=== PATIENT | female | born 1990 | race Caucasian/White ===

== ENCOUNTER 2025-05-06 10:31 | Outpatient (AMB) | payer OTHER, SELFPAY ==
--- NOTE | 2025-05-06 10:33 | MHC.PC.OV ---
Vital Signs 05/06/25 10:43 Height 5 ft 4 in Weight 298 lb BMI 51.1 BP 134/74 Blood Pressure Location Lt brachial Position Sitting Respiration 13 Pulse 82 Pulse Source Pulse Oximeter Temp 97.6 F Temp Source Oral Pulse Oximetry (%) 96 Oxygen Delivery Method Room Air Intake Visit Reasons: Diabetes, Hypertension Intake Note: New patient to establish care. 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 Required: No Allergies No Known Allergies Allergy (Verified 05/06/25 10:51) Medication List - Last Reviewed 05/06/25 by Yonathan Blum MA albuterol sulfate 90 mcg/actuation inhalation chlorthalidone 25 mg PO DAILY clotrimazole 1% appl topical dextroamphetamine-amphetamine 5 mg 1 tab PO BID fluticasone propion-salmeterol 232-14 mcg/actuation 1 inh inhalation losartan 100 mg PO DAILY metformin ER 1,000 mg PO DAILY norethindrone (contraceptive) 0.35 mg PO DAILY nystatin (Nyamyc) topical omeprazole 20 mg PO DAILY rosuvastatin 20 mg PO DAILY semaglutide (Ozempic) mg subcut ziprasidone HCl 60 mg PO BEDTIME Tobacco use date assessed: 05/06/25 Dental Screening Dental Screen Date: 05/06/25 Did you have a dental visit in the last 12 months?: Yes Did you have a dental problem in the last 6 months where you did not have access to dental care?: No Was dental information given to patient?: Patient has dentist HPI HPI Comments History of Present Illness Details 35 y/o F with DM2, HTN, HLD, Asthma, GERD, Bipolar, ADHD, JOSH on CPAP, Vit D def Health Maintenance Tdap 2022 PCV 23 2022 Pap reports UTD at [facility] * Specialists Prescriber BOARD CERTIFIED ARTS THERAPIST at [facility] Optho Dr Arizmendi 12/2024 Denies DM retinopathy* Cards @ [facility] Here today as new patient, to est care No records avail, Dr Del Cid Bipolar/ADHD does not have a counselor; does have a prescriber. Mood stable. Interested in counselor DM 2 not managed by Endo A1c 6.6% DME UTD and negative. Metformin and GLP1. Obesity overeating interested in Piccoloist WT loss, not surgery. HLD on statin GERD on PPI HTN at goal on meds JOSH on CPAP managed by Sleep med at [facility] Palps - new - Zio patch. Kain see Cards for initial consult soon. VIt D def takes supplements Asthma well controlled, Prn MELBA & Flut/Salm. Exam Awake alert NAD Scleras noncteric RRR, 2/6 murmur LSB LS CTAB No edema BLE Normal PP Mood and affect approriate Plan: Labs Wt mgmt and counseling referral Get records RTO 3 months routine visit sooner prn Total time spent caring for the patient today was 45 minutes. This includes time spent before the visit reviewing the chart, time spent during the visit, and time spent after the visit on documentation, reviewing laboratory results, diagnostic imaging, medications, performing a medically necessary evaluation, counseling on diagnoses, care coordination, ordering appropriate tests, ordering appropriate medications, review of tests performed by other providers, reporting test results with the patient, communication with other healthcare providers. [facility] Medical History (Updated 05/06/25 @ 11:24 by Donna Aaron, [facility]) Anxiety and depression Asthma Bipolar 1 disorder Diabetes GERD (gastroesophageal reflux disease) High cholesterol HTN (hypertension) Sinusitis Surgical History (Updated 05/06/25 @ 10:53 by Yonathan Blum MA) History of tonsillectomy Hx of breast reduction, elective Hx of cholecystectomy Family History (Updated 05/06/25 @ 10:57 by Yonathan Blum MA) Mother Asthma Thyroid disorder Father HTN (hypertension) Cardiovascular disease Thyroid disorder Maternal Grandmother HTN (hypertension) Cardiovascular disease Thyroid disorder Paternal Grandmother HTN (hypertension) Cardiovascular disease Thyroid disorder Maternal Grandfather HTN (hypertension) Cardiovascular disease Thyroid disorder Paternal Grandfather HTN (hypertension) Cardiovascular disease Thyroid disorder Social History (Updated 05/06/25 @ 10:49 by Yonathan Blum MA) Household Members: None Both parents involved: No Caregiver staying overnight: No Housing: Apartment Are you a primary rn long term care to a significant other at home: No Do you presently have visiting nurse or other home services: No 75 years or older and lives alone: No Alcohol intake: current Alcohol intake frequency: a few times a month Patient Tobacco Use Status: Never used Tobacco e-Cigarette/Vaping Use: Never Used Second Hand Smoke Exposure: No Current occupational status: employed 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 1. Little interest or pleasure in doing things: not at all 2. Feeling down, depressed, or hopeless: not at all 3. Trouble falling or staying asleep, or sleeping too much: several days 4. Feeling tired or having little energy: not at all 5. Poor appetite or overeating: nearly every day 6. Feeling bad about yourself - or that you are a failure or have let yourself or your family down: not at all 7. Trouble concentrating on things, such as reading the newspaper or watching television: not at all 8. Moving or speaking so slowly that other people could have noticed. Or the opposite - being so fidgety or restless that you have been moving around a lot more than usual: not at all 9. Thoughts that you would be better off or of hurting yourself in some way: not at all Total score: 4 Depression Screening Interpretation: Negative Depression Screening Done: Yes 90997 - PHQ-9 Billing: Yes Source: Developed by Drs. Juan Byrd, Susannah Yadav, Yonatan Mckeon and colleagues, with an educational yissel from [employer]. Thrive Questionnaire Date Thrive assessed: 05/06/25 I am a: Patient What is your living situation today?: I have a steady place to live Within the past 12 months, did the food you bought not last and you didn't have the money to get more?: Never true Within the past 12 months, did you worry whether your food would run out before you got money to buy more?: Never true Do you have trouble paying for medicines?: No Do you have trouble getting transportation to medical appointments?: No Do you have trouble paying your heating and electricity bill?: No Do you have trouble taking care of your child, family member or friend?: No Do you have trouble with day-to-day activities such as bathing, preparing meals, shopping, managing finances, etc.?: No Are you currently unemployed and looking for a job?: No Are you interested in more education?: No Please select the resources that you would like help with: None Currently or been in a relationship where the following occur: No concerns reported THRIVE Score: 0 AUDIT C Alcohol Use Questionnaire (AUDIT-C) 1. How often do you have a drink containing alcohol?: Monthly or less 2. How many drinks containing alcohol do you have on a typical day when you are drinking?: 1 or 2 3. How often do you have six or more drinks on one occasion?: Never Total Score: 1 Score Reviewed/Action Taken: Yes GUILLERMINA-7 AMB Questionnaire GUILLERMINA-7 Date GUILLERMINA - 7 assessed: 05/06/25 Feeling nervous, anxious, or on edge: 2 = More than half the days Not being able to stop or control worryin = Not at all Worrying too much about different things: 1 = Several days Trouble relaxin = More than half the days Being so restless that it is hard to sit still: 3 = Nearly every day Becoming easily annoyed or irritable: 0 = Not at all Feeling afraid as if something awful might happen: 0 = Not at all Total GUILLERMINA-7 score (0-4 normal; 5-9 mild; 10-14 moderate; 15-21 severe): 8 Source: Developed by Drs. Juan Byrd, Susannah Yadav, Yonatan Mckeon and colleagues, with an educational yissel from [employer]. GUILLERMINA-7 Assessment Billing GUILLERMINA-7 Assessment Tool: GUILLERMINA-7 Assessment 78421 ACT Questionnaire In the past 4 weeks, how much of the time did your asthma keep you from getting as much done at work, school or at home?: None of the time During the past 4 weeks, how often have you had shortness of breath?: Not at all During the past 4 weeks, how often did your asthma symptoms wake you up at night or earlier than usual in the morning?: Not at all During the past 4 weeks, how often have you had to use your rescue inhaler or nebulizer medication?: Not at all How would you rate your asthma control during the past 4 weeks?: Completely controlled ACT Interpretation: Negative Score: 25 Physical exam (Primary Care) Vital Signs: Last Vital Signs Temp 97.6 F 05/06/25 10:43 Pulse 82 05/06/25 10:43 Resp 13 05/06/25 10:43 BP 134/74 05/06/25 10:43 Pulse Ox 96 05/06/25 10:43 Oxygen Delivery Method Room Air 05/06/25 10:43 BMI result Body Mass Index 51.1 BMI Assessment/Plan discussion: High BMI High, discussed plan: lifestyle and weight reduction Tobacco/Smoking Status: Tobacco use Status Tobacco use date assessed 05/06/25 05/06/25 10:37 Patient Tobacco Use Status Never used Tobacco 05/06/25 10:49 e-Cigarette/Vaping Use Never Used 05/06/25 10:49 PHQ-9: PHQ-9 Score PHQ-9: Total score 4 05/06/25 10:37 Depression Screening Interpretation: Negative Thrive Assessment: Date of Thrive Assessment Date Thrive assessed 05/06/25 05/06/25 10:37 Currently or been in a relationship where the following occur: No concerns reported Results AMB Hemoglobin A1c AMB Hemoglobin A1c 6.6 % Last Edit by Yonathan Blum MA on 05/06/25 10:57 Coding Level of Care Code New Pt Level 4 (57392) Complex EM visit Add On G2211 Diagnoses Encounter to establish care Z76.89 Bipolar disorder, current episode mixed, moderate F31.62 Active/Remission status: currently active Current bipolar episode type: mixed Current episode severity: moderate BMI 50.0-59.9, adult Z68.43 DM type 2 causing complication E11.8 Hypertension complicating diabetes E11.9; I10 Hyperlipidemia associated with type 2 diabetes mellitus E11.69; E78.5 JOSH on CPAP G47.33 Palpitations R00.2 Mild intermittent asthma in adult without complication J45.20 Vitamin D deficiency E55.9 Additional Codes GUILLERMINA-7 Assessment Billing - GUILLERMINA-7 Assessment Tool: GUILLERMINA-7 Assessment 69577 ([id number]) PHQ-9 - 59761 - PHQ-9 Billing: Yes ([id number]) Asthma Control Questionnaire - ACT Interpretation: Negative ([id number]) Assessment & Plan Assessment & Plan (1) Encounter to establish care: Code(s): Z76.89 - Persons encountering health services in other specified circumstances (2) Bipolar disorder: Code(s): F31.9 - Bipolar disorder, unspecified Category: Medical Qualifiers: Active/Remission status: currently active Current bipolar episode type: mixed Current episode severity: moderate Qualified Code(s): F31.62 - Bipolar disorder, current episode mixed, moderate (3) BMI 50.0-59.9, adult: Code(s): Z68.43 - Body mass index [BMI] 50.0-59.9, adult Category: Medical (4) DM type 2 causing complication: Comment: hld + htn Code(s): E11.8 - Type 2 diabetes mellitus with unspecified complications Category: Medical (5) Hypertension complicating diabetes: Code(s): E11.9 - Type 2 diabetes mellitus without complications; I10 - Essential (primary) hypertension Category: Medical (6) Hyperlipidemia associated with type 2 diabetes mellitus: Code(s): E11.69 - Type 2 diabetes mellitus with other specified complication; E78.5 - Hyperlipidemia, unspecified Category: Medical (7) JOSH on CPAP: Comment: managed by Shiela Laureano [facility] Code(s): G47.33 - Obstructive sleep apnea (adult) (pediatric) Category: Medical (8) Palpitations: Comment: Dr Miles Tipton - manages Holter 2024 Code(s): R00.2 - Palpitations Category: Medical (9) Mild intermittent asthma in adult without complication: Code(s): J45.20 - Mild intermittent asthma, uncomplicated Category: Medical (10) Vitamin D deficiency: Code(s): E55.9 - Vitamin D deficiency, unspecified Category: Medical Plan . Orders: Orders Complete Blood Count no Diff Today E11.8 - Type 2 diabetes mellitus with unspecified complications IRON PROFILE Today E11.8 - Type 2 diabetes mellitus with unspecified complications Lipid Panel Today E11.8 - Type 2 diabetes mellitus with unspecified complications Vitamin D 25-OH Total Today E11.8 - Type 2 diabetes mellitus with unspecified complications AMB Hemoglobin A1c Today Z13.9 - Encounter for screening, unspecified Comprehensive Met. Panel Today E11.8 - Type 2 diabetes mellitus with unspecified complications Ferritin Today E11.8 - Type 2 diabetes mellitus with unspecified complications Microalbumin, Random (w Creat) Today E11.8 - Type 2 diabetes mellitus with unspecified complications TSH reflex Free T4 Today E11.8 - Type 2 diabetes mellitus with unspecified complications Vitamin B12 and Folate Today E11.8 - Type 2 diabetes mellitus with unspecified complications Referrals Nurse Navigator Referral F31.9 - Bipolar disorder, unspecified, Z68.43 - Body mass index [BMI] 50.0-59.9, adult Medical Weight Management Referral Z68.43 - Body mass index [BMI] 50.0-59.9, adult Patient Instructions: Walk-In Care (Urgent Care): We Make it Easy Walk-in for urgent medical issues such as: ? Seasonal Allergies ? Insect Bites ? Cough ? Diarrhea ? Acute Asthma Attacks ? Back, Knee or Joint Pain ? Ear Infection ? Fever without a Rash ? Headaches ? Nausea ? [place] Eye, Rash or Skin Irritation ? Sore Throat ? Sports Physicals ? Vomiting Most insurances are accepted. Patients do not need to be part of the [facility] to seek care at the walk-in clinic. Locations [address] [facility] [place] [address] ? [phone] [facility] Walk-In Care in [place] provides services to ages 18 and over. Open Saturday-Saturday: 8 a.m. to 5 p.m. and Saturday: 9 a.m. to 3 p.m.* *Hours may vary due to staffing availability. To confirm Walk-In Care hours in [place], please call [phone]. [address] [place] [address] ? [phone] [facility] Walk-In Care in [place] provides services to ages 12 and over. Open Saturday-Saturday: 8 a.m. to 5 p.m. Hours may vary due to staffing availability. To confirm Walk-In Care hours in [place], please call [phone]. LABORATORY SERVICES: [facility] ? Primary Location [address] [place] [address] Saturday through Saturday 6:00 AM ? 5:00 PM Saturday 7:00 AM ? 11:00 AM* [phone] The [facility] is centrally located near the front entrance of the [facility] for easy outpatient access. Convenient parking is provided for outpatients. *Hours may vary due to staffing availability. To confirm Laboratory hours for any location, please call [phone]. Offsite Location For your convenience, we offer offsite laboratory draw stations at the following locations: [address] [place] [address] ? [facility] [address], [address] Saturday through Saturday 7:30 AM ? 1:00 PM* [phone] *Hours may vary due to staffing availability. To confirm Laboratory hours for any location, please call [phone]. [place] ? [address] Saturday through Saturday 6:00 AM ? 3:30 PM* Saturday 6:30 AM ? 3 PM* [phone] *Hours may vary due to staffing availability. To confirm Laboratory hours for any location, please call [phone]. [address] [facility] Saturday through Saturday 7:30 AM ? 4:00 PM* [phone] *Hours may vary due to staffing availability. To confirm Laboratory hours for any location, please call [phone]. [address] [facility] Saturday through 9:00 AM ? 4:00 PM* *Hours may vary due to staffing availability. To confirm Laboratory hours for any location, please call [phone]. Appointments are not necessary. Walk-ins are welcome. Like all the departments throughout the [facility], our Lab undergoes frequent reviews to ensure the quality and accuracy of test results, and our staff takes special pride in its status as a nationally accredited facility. Patient Portal: ONE PATIENT. ONE RECORD. BETTER CARE. [facility] has a fully integrated, cutting-edge mobile electronic health information system that has revolutionized the way we care for our patients and manage our organization. This system improves communication and coordination enabling us to provide safe, higher-quality care, and an overall positive experience for staff and patients. Our first priority, as always, is to deliver the highest quality care possible. The system is running in the background supporting that priority. This portal is for all [facility] and [facility] services and practices. If you are experiencing any technical difficulties with enrolling or logging into the Patient Portal please complete the [facility] Patient Portal Technical Support Form. [facility] now offers a new secure on-line interactive tool for patients to review their health information ? ?Patient Portal. This interactive web portal will enable patients and their families to take an active role in their care by providing easy, secure access to their health information via the internet. The Patient Portal provides patients with instant access to their health information, including laboratory results, medications, allergies, demographic information, visit history, and more. In addition to managing their own care, parents and health care proxies with authorized consent will appreciate the ability to access the records of those individuals for whom they provide care. Please note: if you wish to gain access (Proxy) to another patient?s portal, you will be required to come to the Medical Records Department in person at [facility]. Both the patient giving proxy access and the proxy will need to provide photo identification and complete the appropriate authorization. The Patient Portal also allows track their appointments online. The [facility] Patient Portal also saves patients time by allowing them to submit updates to their demographic and contact information prior to their visits. Portal email notifications will also alert patients to any new activity on their portal, such as test results and new appointments. In order to initially enroll in the [facility] Patient Portal, you will need to enter some required information including the following: your [facility] Medical Record number your personal home email address name date of Please note: In order to enroll in the [facility] Patient Portal, we need to have your email address on file in your electronic medical record. ?The email address needs to be specific for one person (yourself) in order for your Portal enrollment to be successful. ?You can update your email address in person with our Registration staff when you are registering for a hospital visit. ?Otherwise, you will need to come to the Health Information Management (Medical Records) Department at [facility]. ?We are open from Saturday ? Saturday from 7:30 a.m. ? 4:30 p.m. ?You will be required to present a photo id. Once you have successfully enrolled in the Patient Portal, you will receive a one-time user id and password for the Portal, sent to your email address. ?This will allow you to log into the Patient Portal within 99 hrs and reset your own logon id and password, and define personal security questions. ?Once your permanent login and password have been set, you can log into the [facility] Patient Portal at any time via the blue button above or from the Portal Logon button on any page of the [facility] website. [facility] encourage all of our patients to enroll in Patient Portal as it presents a valuable opportunity for patients and their families to actively participate in their care and stay healthy Welcome to [facility]. ?We look forward to working with you.
[2025-05-06 10:43] VITALS: BP 134/74; PULSE 82; RESP 13; TEMP 36.4; O2SAT 96; BMI 51.1
== END 2025-05-06 11:18 | disposition home or self-care (01) ==
LOC: HO.HMCFM 10:32
PROVIDERS: PCP Nurse Practitioner Family; Visit Provider Nurse Practitioner Family
DX: E11.8 Type 2 diabetes mellitus with unspecified complications (principal); E11.9 Type 2 diabetes mellitus without complications; E11.69 Type 2 diabetes mellitus with other specified complication; F31.62 Bipolar disorder, current episode mixed, moderate; Z68.43 Body mass index [BMI] 50.0-59.9, adult; Z76.89 Persons encountering health services in other specified circumstances; I10 Essential (primary) hypertension; E78.5 Hyperlipidemia, unspecified; G47.33 Obstructive sleep apnea (adult) (pediatric); R00.2 Palpitations; J45.20 Mild intermittent asthma, uncomplicated; E55.9 Vitamin D deficiency, unspecified

== ENCOUNTER → 2025-05-06 10:31 | Outpatient (BNVA) | payer OTHER, SELFPAY | PROVIDERS: PCP Nurse Practitioner Family; Visit Provider Nurse Practitioner Family | DX: I10 Essential (primary) hypertension (principal); E78.5 Hyperlipidemia, unspecified; J45.20 Mild intermittent asthma, uncomplicated; K21.9 Gastro-esophageal reflux disease without esophagitis; F31.9 Bipolar disorder, unspecified; F90.9 Attention-deficit hyperactivity disorder, unspecified type; G47.33 Obstructive sleep apnea (adult) (pediatric); E55.9 Vitamin D deficiency, unspecified; F31.62 Bipolar disorder, current episode mixed, moderate; E11.69 Type 2 diabetes mellitus with other specified complication; R00.2 Palpitations; Z76.89 Persons encountering health services in other specified circumstances; Z99.89 Dependence on other enabling machines and devices | CPT/HCPCS: 83036; 96127; 96160 ==

== ENCOUNTER 2025-05-06 11:37 | Outpatient (REF) | payer OTHER, SELFPAY ==
[2025-05-06 13:46] LABS: Hematocrit 41.2 % (37.0-47.0); Hemoglobin 13.2 g/dl (12.0-16.0); Mean Corpuscular Hemoglobin 27.2 pg (27.0-33.0); Mean Corpuscular Volume 84.8 fL (80.0-98.0); Mean Platelet Volume 9.7 fL (9.4-12.3); Platelet Count 267 X10*3/uL (160-400); Red Blood Count 4.86 X10*6/uL (4.20-5.50); Red Cell Distribution Width 15.3 % (11.0-16.0)
[2025-05-06 14:14] LABS: Alanine Aminotransferase 40 U/L (0-31); Albumin Level 4.5 g/dL (3.5-5.0); Alkaline Phosphatase 88 U/L (39-117); Anion Gap 11 (12-20); Aspartate Amino Transferase 26 U/L (5-31); Bilirubin Total 0.2 mg/dL (0.0-1.0); Blood Urea Nitrogen 10 mg/dL (9-16); Calcium 9.8 mg/dL (8.4-10.2); Carbon Dioxide 30 mmol/L (22-29); Chloride 101 mmol/L (96-108); Cholesterol 129 mg/dL (<200); Estimated Glomerular Filt Rate > 60; Glucose Random 232 mg/dL (60-115); HDL Cholesterol 32 mg/dL (>40); Iron 156 mcg/dL (30-160); Percent Iron Saturation 42 % (15-50); Potassium 3.7 mmol/L (3.3-5.1); Sodium 138 mmol/L (135-145); Total Iron Binding Capacity 372 mcg/dL (228-428); Total Protein 7.2 g/dL (6.5-8.0); Triglycerides 422 mg/dL (<150); Unsaturated Iron Binding 216 ug/dL
[2025-05-06 14:33] LABS: Ferritin 33 ng/mL (10-122); TSH reflex Free T4 2.59 uIU/mL (0.32-4.0); Vitamin D 25-OH Total 41.3 ng/mL (>30)
[2025-05-06 14:37] LABS: Folate 18.7 ng/mL (> or = 4.0); Vitamin B12 649 pg/mL (200-900)
== END 2025-05-06 11:38 | disposition home or self-care (01) ==
LOC: HO.WFDLDS 11:37
PROVIDERS: Visit Provider Nurse Practitioner Family
DX: E11.8 Type 2 diabetes mellitus with unspecified complications (principal)
CPT/HCPCS: 36415; 80053; 80061; 82306; 82607; 82728; 82746; 83540; 84443; 85027

== ENCOUNTER 2025-05-08 12:35 | Outpatient (REF) | payer OTHER, SELFPAY ==
[2025-05-08 14:28] LABS: Creatinine Urine 59.23 mg/dL; Microalbumin Urine < 5.0 mg/L
== END 2025-05-08 12:36 | disposition home or self-care (01) ==
LOC: HO.HMGCLNP 12:35
PROVIDERS: Visit Provider Nurse Practitioner Family
DX: E11.8 Type 2 diabetes mellitus with unspecified complications (principal)
CPT/HCPCS: 82043; 82570

== ENCOUNTER 2025-08-09 08:35 | Outpatient (AMB) | payer OTHER, SELFPAY ==
--- NOTE | 2025-08-09 08:37 | A.OFFPC_ITS ---
Vital Signs 3 08/09/25 08:41 Height 5 ft 4 in Weight 297 lb BMI 51.0 BP 138/74 Blood Pressure Location Rt brachial Position Sitting Respiration 13 Pulse 76 Pulse Source Pulse Oximeter Temp 97.6 F Temp Source Oral Pulse Oximetry (%) 98 Oxygen Delivery Method Room Air Intake Visit Reasons: 3 mo 30 min routine fu Intake Note: Routine follow up. Patient wants to discuss about blood pressure and also wants to review echo. Yard Clerk Required: No Allergies No Known Allergies Allergy (Verified 08/09/25 08:45) Medication List - Last Reconciled 08/09/25 by Donna Aaron, SHIPPING MANAGER- albuterol sulfate 90 mcg/actuation inhalation chlorthalidone 25 mg PO DAILY clotrimazole 1% appl topical dextroamphetamine-amphetamine 5 mg 1 tab PO BID fluticasone propion-salmeterol 232-14 mcg/actuation 1 inh inhalation losartan 100 mg PO DAILY metformin ER 1,000 mg PO DAILY norethindrone (contraceptive) 0.35 mg PO DAILY nystatin (Nyamyc) topical omeprazole 20 mg PO DAILY rosuvastatin 20 mg PO DAILY semaglutide (Ozempic) mg subcut ziprasidone HCl 60 mg PO BEDTIME Tobacco use date assessed: 08/09/25 Dental Screening Dental Screen Date: 08/09/25 Did you have a dental visit in the last 12 months?: Yes Did you have a dental problem in the last 6 months where you did not have access to dental care?: No Was dental information given to patient?: Patient has dentist HPI HPI Comments 2 History of Present Illness0 Details 35 y/o F with DM2, HTN, HLD, Asthma, FLORY D, Bipolar, ADHD, JOSH on CPAP, Vit D def Health Maintenance Tdap 2022 PCV 2022 Pap reports UTD at [facility] * Flu admin today 08/09/25 Specialists Prescriber Counselor 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 L chest wall pain, worse w movements, can occur after eating; Mom thinks muscular. This is not exertionally worse. Describes as sharp. static like Appt w/ Cards at [facility] 09/2025 Bipolar/ADHD now active w/ counselor; does have a prescriber. Mood stable. DM 2 not managed by Endo A1c (6.6%) 7.4% DME UTD and negative. Metformin and GLP1. would like podiatry referral for foot care; has fungus. no at home tx. Obesity overeating interested in Cap Maker WT loss, not surgery. HLD on statin GERD on PPI HTN at goal on meds . Worries about high BP at work d/t levels of stress. Home log reviewed. See below. JOSH on CPAP managed by Sleep med at [facility] Palps - new - Zio patch. Echo completed; reviewed today. Consult w cards 09/2025 VIt D def takes supplements Asthma forgets to take maintenance inhaler, having sx. Describes crackling in chest at times. does not like MELBA as it causes palps. Exam Awake alert NAD Scleras noncteric RRR, 2/6 murmur LSB LS CTAB No edema BLE Normal PP DM foot exam performed, see below Mood and affect approriate Plan: Flu shot today STart farxiga 10mg to aide in DM; send jardiance or invokana based on co-pay. Referral to Wt Mgmt and Podiatry Clotrimazole for tinea pedis Change Albuterol to Xopenex. Take flut/salmeterol 2 puffs QD. Cont all meds. BP looks good. FU with Cards as scheduled. RTO with labs Dec for CPE, sooner as needed. Total time spent caring for the patient today was 45 minutes. This includes time spent before the visit reviewing the chart, time spent during the visit, and time spent after the visit on documentation, reviewing laboratory results, diagnostic imaging, medications, performing a medically necessary evaluation, counseling on diagnoses, care coordination, ordering appropriate tests, ordering appropriate medications, review of tests performed by other providers, reporting test results with the patient, communication with other healthcare providers. [facility] Medical History (Updated 08/09/25 @ 09:21 by ALY Jacob) Anxiety and depression Asthma Bipolar 1 disorder Diabetes GERD (gastroesophageal reflux disease) High cholesterol HTN (hypertension) Sinusitis Surgical History (Updated 05/06/25 @ 10:53 by Yonathan Blmu MA) History of tonsillectomy Hx of breast reduction, elective Hx of cholecystectomy Family History (Updated 05/06/25 @ 10:57 by Yonathan Blum MA) Mother Asthma Thyroid disorder Father HTN (hypertension) Cardiovascular disease Thyroid disorder Maternal Grandmother HTN (hypertension) Cardiovascular disease Thyroid disorder Paternal Grandmother HTN (hypertension) Cardiovascular disease Thyroid disorder Maternal Grandfather HTN (hypertension) Cardiovascular disease Thyroid disorder Paternal Grandfather HTN (hypertension) Cardiovascular disease Thyroid disorder Social History (Updated 05/06/25 @ 10:49 by Yonathan Blum MA) Household Members: None Both parents involved: No Caregiver staying overnight: No Housing: Apartment Are you a primary acute care physician to a significant other at home: No Do you presently have visiting nurse or other home services: No 75 years or older and lives alone: No Alcohol intake: current Alcohol intake frequency: a few times a month Patient Tobacco Use Status: Never used Tobacco e-Cigarette/Vaping Use: Never Used Second Hand Smoke Exposure: No Current occupational status: employed 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 1. Little interest or pleasure in doing things: not at all 2. Feeling down, depressed, or hopeless: not at all 3. Trouble falling or staying asleep, or sleeping too much: not at all 4. Feeling tired or having little energy: not at all 5. Poor appetite or overeating: not at all 6. Feeling bad about yourself - or that you are a failure or have let yourself or your family down: not at all 7. Trouble concentrating on things, such as reading the newspaper or watching television: not at all 8. Moving or speaking so slowly that other people could have noticed. Or the opposite - being so fidgety or restless that you have been moving around a lot more than usual: not at all 9. Thoughts that you would be better off or of hurting yourself in some way: not at all Total score: 0 Depression Screening Interpretation: Negative Depression Screening Done: Yes 61721 - PHQ-9 Billing: Yes Source: Developed by Drs. Juan Byrd, Susannah Yadav, Yonatan Mckeon and colleagues, with an educational yissel from [employer]. Thrive Questionnaire Date Thrive assessed: 08/09/25 I am a: Patient What is your living situation today?: I have a steady place to live Within the past 12 months, did the food you bought not last and you didn't have the money to get more?: Never true Within the past 12 months, did you worry whether your food would run out before you got money to buy more?: Never true Do you have trouble paying for medicines?: No Do you have trouble getting transportation to medical appointments?: No Do you have trouble paying your heating and electricity bill?: No Do you have trouble taking care of your child, family member or friend?: No Do you have trouble with day-to-day activities such as bathing, preparing meals, shopping, managing finances, etc.?: No Are you currently unemployed and looking for a job?: No Are you interested in more education?: No THRIVE Score: 0 GUILLERMINA-7 AMB Questionnaire GUILLERMINA-7 Date GUILLERMINA - 7 assessed: 08/09/25 Feeling nervous, anxious, or on edge: 0 = Not at all Not being able to stop or control worryin = Not at all Worrying too much about different things: 0 = Not at all Trouble relaxin = Not at all Being so restless that it is hard to sit still: 0 = Not at all Becoming easily annoyed or irritable: 0 = Not at all Feeling afraid as if something awful might happen: 0 = Not at all Total GUILLERMINA-7 score (0-4 normal; 5-9 mild; 10-14 moderate; 15-21 severe): 0 Source: Developed by Drs. Juan Byrd, Susannah Yadav, Yonatan Mckeon and colleagues, with an educational yissel from [employer]. GUILLERMINA-7 Assessment Billing GUILLERMINA-7 Assessment Tool: GUILLERMINA-7 Assessment 03673 ACT Questionnaire In the past 4 weeks, how much of the time did your asthma keep you from getting as much done at work, school or at home?: None of the time During the past 4 weeks, how often have you had shortness of breath?: 3-6 times a week During the past 4 weeks, how often did your asthma symptoms wake you up at night or earlier than usual in the morning?: Not at all During the past 4 weeks, how often have you had to use your rescue inhaler or nebulizer medication?: 1-2 times a week How would you rate your asthma control during the past 4 weeks?: Somewhat controlled ACT Interpretation: Positive ACT Branch: New medication Score: 18 Physical exam (Primary Care) Vital Signs: Last Vital Signs Temp 97.6 F 08/09/25 08:41 Pulse 76 08/09/25 08:41 Resp 13 08/09/25 08:41 BP 138/74 08/09/25 08:41 Pulse Ox 98 08/09/25 08:41 Oxygen Delivery Method Room Air 08/09/25 08:41 BMI result Body Mass Index 51.0 BMI Assessment/Plan discussion: High BMI High, discussed plan: lifestyle Tobacco/Smoking Status: Tobacco use Status Tobacco use date assessed 08/09/25 08/09/25 08:40 Patient Tobacco Use Status Never used Tobacco 08/09/25 08:37 e-Cigarette/Vaping Use Never Used 08/09/25 08:37 PHQ-9: PHQ-9 Score PHQ-9: Total score 0 08/09/25 09:26 Depression Screening Interpretation: Negative Thrive Assessment: Date of Thrive Assessment Date Thrive assessed 05/06/25 08/09/25 08:57 Office Procedures Diabetic Foot Exam Details: normal monofilament bilat, normal vibratory sensation bilat, + tinea pedis and callouses bilat G9226 - Diabetic Foot Exam Flu Questionnaire Does the patient have a severe egg allergy?: No Does the patient have severe life threatening allergies?: No Does the patient have a fever or illness today?: No Has the patient ever had Guillain-Westover Syndrome?: No Has the patient ever had any past reaction to a flu shot?: No Results AMB Hemoglobin A1c 2 AMB Hemoglobin A1c 7.4 % Last Edit by Yonathan Blum MA on 08/09/25 09:28 Immunizations Fluarix [id number] (PF) 45 mcg (15 mcg x 3)/0.5 mL IM syringe Performing Provider: MARIE Jacob Performing Location: [facility] Administered by: Yonathan Blum MA on 08/09/25 09:27 2 Dose Route Admin Location Dispensed Lot Number Expiration Date [facility] Medical Coding Instructor 0.5 mL IM Left Deltoid 0.5 mL [id number] 05/17/26 [id number] [employer] 2 VIS Given Date VIS Provided VIS Publication Date 08/09/25 Single Vaccine 24 Eligibility Eligibility Date Funding Source Not VFC Eligible 08/09/25 Private Results Reviewed Results Reviewed: Laboratory Last Values Hgb A1c (Clinic) 7.4 % (4.0-6.0) H 08/09/25 09:23 08/02/25 [facility] Echo Coding Level of Care Code Est Pt Level 5 (60451) Complex EM visit Add On G2211 Diagnoses Hypertension complicating diabetes E11.9; I10 Palpitations R00.2 Hyperlipidemia associated with type 2 diabetes mellitus E11.69; E78.5 DM type 2 causing complication E11.8 BMI 50.0-59.9, adult Z68.43 Influenza vaccination administered at current visit Z23 Vitamin D deficiency E55.9 H/O echocardiogram Z92.89 CPT Codes Diabetic Foot Exam - CPT: G9226 - Diabetic Foot Exam ([id number]) Additional Codes Asthma Control Questionnaire - ACT Interpretation: Positive ([id number]) GUILLERMINA-7 Assessment Billing - GUILLERMINA-7 Assessment Tool: GUILLERMINA-7 Assessment 16209 ([id number]) PHQ-9 - 51115 - PHQ-9 Billing: Yes ([id number]) Assessment & Plan Assessment & Plan (1) Hypertension complicating diabetes: Code(s): E11.9 - Type 2 diabetes mellitus without complications; I10 - Essential (primary) hypertension Category: Medical (2) Palpitations: Comment: Dr Aquino [facility] - manages Holter 2024 Code(s): R00.2 - Palpitations Category: Medical (3) Hyperlipidemia associated with type 2 diabetes mellitus: Code(s): E11.69 - Type 2 diabetes mellitus with other specified complication; E78.5 - Hyperlipidemia, unspecified Category: Medical (4) DM type 2 causing complication: Comment: hld + htn Code(s): E11.8 - Type 2 diabetes mellitus with unspecified complications Category: Medical (5) BMI 50.0-59.9, adult: Code(s): Z68.43 - Body mass index [BMI] 50.0-59.9, adult Category: Medical (6) Influenza vaccination administered at current visit: Code(s): Z23 - Encounter for immunization Category: Medical (7) Vitamin D deficiency: Code(s): E55.9 - Vitamin D deficiency, unspecified Category: Medical (8) H/O echocardiogram: Onset Date: ~07/2025 Code(s): Z92.89 - Personal history of other medical treatment Category: Medical Plan . Orders: Orders 2 Comprehensive Met. Panel Today E11.69 - Type 2 diabetes mellitus with other specified complication, E11.8 - Type 2 diabetes mellitus with unspecified complications, E11.9 - Type 2 diabetes mellitus without complications, E55.9 - Vitamin D deficiency, unspecified, E78.5 - Hyperlipidemia, unspecified, I10 - Essential (primary) hypertension Vitamin D 25-OH Total Today E11.69 - Type 2 diabetes mellitus with other specified complication, E11.8 - Type 2 diabetes mellitus with unspecified complications, E11.9 - Type 2 diabetes mellitus without complications, E55.9 - Vitamin D deficiency, unspecified, E78.5 - Hyperlipidemia, unspecified, I10 - Essential (primary) hypertension Lipid Panel Today E11.69 - Type 2 diabetes mellitus with other specified complication, E11.8 - Type 2 diabetes mellitus with unspecified complications, E11.9 - Type 2 diabetes mellitus without complications, E55.9 - Vitamin D deficiency, unspecified, E78.5 - Hyperlipidemia, unspecified, I10 - Essential (primary) hypertension Vitamin B12 and Folate Today E11.69 - Type 2 diabetes mellitus with other specified complication, E11.8 - Type 2 diabetes mellitus with unspecified complications, E11.9 - Type 2 diabetes mellitus without complications, E55.9 - Vitamin D deficiency, unspecified, E78.5 - Hyperlipidemia, unspecified, I10 - Essential (primary) hypertension AMB Hemoglobin A1c Today Z13.9 - Encounter for screening, unspecified Influenza [id number] Immunization Today Z23 - Encounter for immunization Referrals 2 Medical Weight Management Referral Z68.43 - Body mass index [BMI] 50.0-59.9, adult Podiatry Referral E11.8 - Type 2 diabetes mellitus with unspecified complications Medications: New 2 losartan 100 mg PO DAILY 90 tabs 2RF clotrimazole 1% 1 appl topical BID 30 grams 2RF 4 weeks levalbuterol tartrate 45 mcg/actuation (Xopenex HFA) 2 puffs inhalation Q6H PRN 15 grams 2RF shortness of breath chlorthalidone 25 mg PO DAILY 90 tabs 2RF dapagliflozin propanediol (Farxiga) 10 mg PO DAILY 90 tabs 2RF Changed 2 From fluticasone propion-salmeterol 232-14 mcg/actuation 1 inh inhalation To fluticasone propion-salmeterol 232-14 mcg/actuation 1 inh inhalation BID 3 ea 2RF
[2025-08-09 08:41] VITALS: BP 138/74; PULSE 76; RESP 13; TEMP 36.4; O2SAT 98; BMI 51.0
== END 2025-08-09 10:05 | disposition home or self-care (01) ==
PROVIDERS: PCP Nurse Practitioner Family; Visit Provider Nurse Practitioner Family
DX: E11.69 Type 2 diabetes mellitus with other specified complication (principal); Z68.43 Body mass index [BMI] 50.0-59.9, adult; I10 Essential (primary) hypertension; R00.2 Palpitations; E78.5 Hyperlipidemia, unspecified; Z23 Encounter for immunization; E55.9 Vitamin D deficiency, unspecified; Z92.89 Personal history of other medical treatment

== ENCOUNTER → 2025-08-09 08:35 | Outpatient (BNVA) | payer OTHER, SELFPAY | PROVIDERS: PCP Nurse Practitioner Family; Visit Provider Nurse Practitioner Family | DX: E11.69 Type 2 diabetes mellitus with other specified complication (principal); I10 Essential (primary) hypertension; R00.2 Palpitations; E78.5 Hyperlipidemia, unspecified; E55.9 Vitamin D deficiency, unspecified; Z23 Encounter for immunization; Z68.43 Body mass index [BMI] 50.0-59.9, adult | CPT/HCPCS: 83036; 90471; 90656; 96127; 96160 ==

== ENCOUNTER 2025-08-31 07:55 | Outpatient (AMB) | payer OTHER, SELFPAY ==
[2025-08-31 08:07] VITALS: BMI 50.1
--- NOTE | 2025-08-31 08:07 | MHC.OFFVIS ---
Vital Signs 08/31/25 08:07 Height 5 ft 4 in Weight 292 lb BMI 50.1 Intake Visit Reasons: New Pt- diabetic foot exam Intake Note: Stephanie is 35 year old female who is being seen today as a New Patient for a diabetic foot exam. Her last reported A1c was 7.4 as of 08/09/25 and her last glucose reading was 232 as of 05/06/25. Pt denies experiencing numbness, tingling, or burning in her feet. She has history of a left ankle fracture. She has experienced vomiting recently and she believes it was due to what she ate and the ozempic. She reports having bilateral callous on the plantar as pect of her foot and a possible fungal growth on her second left toe Allergies No Known Allergies Allergy (Verified 08/31/25 08:12) HPI Comments Details: The patient is a 35-year-old female with a past medical history as seen below presenting with foot-related issues including athlete's foot, thickening of the skin, and concerns related to diabetes mellitus. The patient reports having athlete's foot on in between her toes, which she occasionally treats with an antifungal cream and spray. Patient states she has been inconsistent with the use of the topical treatments. She acknowledges wearing shoes without socks. The patient also reports thickening of her skin to the plantar aspect of her feet, which sometimes crack and cause pain. She has not experienced significant pain but notes dryness as a contributing factor. The patient has diabetes mellitus with a recent HbA1c of 7.4%, which is the highest it has been for her. Patient states she has not checked her blood glucose today or yesterday and does not know the current blood glucose level. She admits to inconsistent use of her prescribed Ozempic, missing doses occasionally. The patient denies any numbness, tingling, or burning in her feet. She states she has noted changes to the appearance of the left 2nd toenail with rigid noted. She denies any recent pedal injuries. She denies any other pedal concerns. [facility] Medical History (Updated 08/31/25 @ 08:33 by Opal Paul DPM) Tinea pedis Diabetic neuropathy Bipolar 1 disorder Anxiety and depression GERD (gastroesophageal reflux disease) Diabetes High cholesterol HTN (hypertension) Sinusitis Asthma Surgical History (Updated 05/06/25 @ 10:53 by Yonathan Blum MA) Hx of cholecystectomy Hx of breast reduction, elective History of tonsillectomy Family History (Updated 05/06/25 @ 10:57 by Yonathan Blum MA) Mother Asthma Thyroid disorder Father HTN (hypertension) Cardiovascular disease Thyroid disorder Maternal Grandmother HTN (hypertension) Cardiovascular disease Thyroid disorder Paternal Grandmother HTN (hypertension) Cardiovascular disease Thyroid disorder Maternal Grandfather HTN (hypertension) Cardiovascular disease Thyroid disorder Paternal Grandfather HTN (hypertension) Cardiovascular disease Thyroid disorder Social History (Updated 05/06/25 @ 10:49 by Yonathan Blum MA) Household Members: None Both parents involved: No Caregiver staying overnight: No Housing: Apartment Are you a primary hospice spiritual care coordinator to a significant other at home: No Do you presently have visiting nurse or other home services: No 75 years or older and lives alone: No Alcohol intake: current Alcohol intake frequency: a few times a month Patient Tobacco Use Status: Never used Tobacco e-Cigarette/Vaping Use: Never Used Second Hand Smoke Exposure: No Current occupational status: employed 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 - Dermatological: Reports peeling of skin itching in between toes, thickened skin to the plantar aspects of the feet, and ridges on nails. All systems reviewed & are unremarkable except as noted in HPI and below Physical Exam Vital Signs: BMI result Body Mass Index 50.1 Extrem Other: Bilateral lower extremity focused physical exam: Derm: Xerosis and peeling of skin noted to the feet worse to the interdigital spaces bilaterally. Thickened appearance of the plantar aspect of the feet along the plantar aspects with no cracking noted. Toenails within normal limits except for the left 2nd which exhibits ridges to the nail. No open lesions abrasions or wounds noted. No clinical signs of infection. Vascular: DP/PT pulses mildly palpable. Capillary refill time less than 3 seconds. Temperature gradient warm to warm. No edema noted. No varicosities noted. Pedal hair present. Neuro: Protective sensation is grossly intact to light touch. Protective sensations slightly diminished to monofilament testing. MSK: No pain on palpation to the feet bilaterally. Range of motion of the forefoot, hindfoot, and ankles within normal limits. MMT 5/5. Nonantalgic gait unassisted. No crepitus or fluctuance noted. Office Procedures Diabetic Foot Exam G9226 - Diabetic Foot Exam Results Reviewed Results Reviewed: Laboratory Tests 05/06/25 08/09/25 11:40 09:23 Random Glucose 232 H Hgb A1c (Clinic) 7.4 H Assessment & Plan Assessment & Plan (1) DM type 2 causing complication: Comment: hld + htn Code(s): E11.8 - Type 2 diabetes mellitus with unspecified complications Category: Medical (2) Diabetic neuropathy: Code(s): E11.40 - Type 2 diabetes mellitus with diabetic neuropathy, unspecified Category: Medical Qualifiers: Diabetes mellitus type: type 2 (3) Tinea pedis: Code(s): B35.3 - Tinea pedis Category: Medical Qualifiers: Laterality: bilateral Qualified Code(s): B35.3 - Tinea pedis Plan Patient was informed and verbally consented to the use of an ambient scribe for clinic note documentation during this visit. I discussed the importance of managing diabetes to prevent complications such as ulcers, worsening of neuropathy, vision impairement, and adverse effects to organs. We talked about using antifungal treatments for athlete's foot and the necessity of keeping feet clean and dry. I recommended diabetic shoes and insoles for better support and advised on regular foot checks. Follow-up care was planned for nail trimming every nine weeks. - Prescribed Terbinafine cream for athlete's foot, to be applied on the bottom of the feet, avoiding the spaces between toes. Patient may use OTC antifungal spray in between the toes and was advised to let it dry before applying shoes and socks to avoid maceration and breakdown of skin. - Recommend keeping feet clean and dry. Recommended spraying shoes with Lysol and let air dry prior to applying shoes. - Suggested diabetic shoes and insoles for better foot support and to prevent trauma. Provided patient with prescription. - Advised regular monitoring of blood sugar levels and adherence to Ozempic regimen/diabetic treatment as per PCP. - Avoid barefoot walking and wear supportive shoe gear. RTC in 9 weeks for routine diabetic nail care. Orders: Orders AMB Diabetic Foot Exam Today E11.40 - Type 2 diabetes mellitus with diabetic neuropathy, unspecified, E11.8 - Type 2 diabetes mellitus with unspecified complications Medications: New terbinafine HCl 1% (Antifungal (terbinafine)) 1 appl topical BID 30 grams 2RF Tinea Pedis B35.3 - Tinea pedis [diabetic shoes and inserts] Please provide patient with diabetic shoes and inserts/insoles 1 ea 0RF Diabetic neuropathy E11.40 - Type 2 diabetes mellitus with diabetic neuropathy, unspecified, E11.8 - Type 2 diabetes mellitus with unspecified complications Discontinued clotrimazole 1% Discontinued Reason: Patient no longer taking 1 appl topical BID 4 weeks 30 grams 2RF Coding Level of Care Code New Pt Level 4 (00140) Diagnoses DM type 2 causing complication E11.8 Diabetic neuropathy E11.40 Diabetes mellitus type: type 2 Tinea pedis of both feet B35.3 Laterality: bilateral CPT Codes Diabetic Foot Exam - CPT: G9226 - Diabetic Foot Exam ([id number]) Time Spent (min) 55
== END 2025-08-31 08:27 | disposition home or self-care (01) ==
LOC: HO.HPODS 07:55
PROVIDERS: PCP Nurse Practitioner Family; Visit Provider Student in an Organized Health Care Education/Training Program
DX: E11.8 Type 2 diabetes mellitus with unspecified complications (principal); E11.40 Type 2 diabetes mellitus with diabetic neuropathy, unspecified; B35.3 Tinea pedis
CPT/HCPCS: 99204; G9226

== ENCOUNTER 2025-11-05 08:01 | Outpatient (AMB) | payer OTHER, SELFPAY ==
--- NOTE | 2025-11-05 08:26 | MHC.OFFVISWM ---
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 Allergies melon Allergy (Mild, Verified 11/05/25 08:26) Hives Medication List - Last Reconciled 11/05/25 by Danny Hall MD chlorthalidone 25 mg PO DAILY [diabetic shoes and inserts Please provide patient with diabetic shoes and inserts/insoles] fluticasone propion-salmeterol 232-14 mcg/actuation 1 inh inhalation BID levalbuterol tartrate 45 mcg/actuation (Xopenex HFA) 2 puffs inhalation Q6H PRN losartan 100 mg PO DAILY magnesium oxide 400 mg PO DAILY metformin ER 1,000 mg PO DAILY multivitamin 1 tab PO DAILY norethindrone (contraceptive) 0.35 mg PO DAILY nystatin (Nyamyc) topical omeprazole 20 mg PO DAILY rosuvastatin 20 mg PO DAILY semaglutide (Ozempic) mg subcut terbinafine HCl 1% (Antifungal (terbinafine)) 1 appl topical BID ziprasidone HCl 60 mg PO BEDTIME HPI 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: Details: Start time: 8.13am, End time: 9.13am ?I spent 55 minutes speaking with the patient on the phone plus an additional 5 minutes reviewing and updating records for a total of 60 minutes HPI Comments Details: Previous weight loss efforts: self diets and Ozempic to 2mg/wk: no WL Wakes up: 8am, Sleeps: 9pm Breakfast: 8.30am (liquid Nuri or Premier protein shake) Lunch: 2pm (chicken salad with canned chicken Dinner: 5.30pm (yogurt, salmon with rice, pizza) Snacks: 10.30am ([place] bar), 7-8pm (more food from dinner, cookies) Exercise: manual bike (does not track calories) Beverages: Coffee: (2 cups/d with 1% milk with creamer), Tea: none, Soda:none, Juice: rarely, ETOH: rarely PFSH Medical History (Updated 11/05/25 @ 08:33 by Danny Hall MD) Morbid obesity Tinea pedis Diabetic neuropathy Bipolar 1 disorder Anxiety and depression GERD (gastroesophageal reflux disease) Diabetes High cholesterol HTN (hypertension) Sinusitis Asthma Surgical History (Updated 05/06/25 @ 10:53 by Yonathan Blum MA) Hx of cholecystectomy Hx of breast reduction, elective History of tonsillectomy Family History (Updated 05/06/25 @ 10:57 by Yonathan Blum MA) Mother Asthma Thyroid disorder Father HTN (hypertension) Cardiovascular disease Thyroid disorder Maternal Grandmother HTN (hypertension) Cardiovascular disease Thyroid disorder Paternal Grandmother HTN (hypertension) Cardiovascular disease Thyroid disorder Maternal Grandfather HTN (hypertension) Cardiovascular disease Thyroid disorder Paternal Grandfather HTN (hypertension) Cardiovascular disease Thyroid disorder Social History (Updated 05/06/25 @ 10:49 by Yonathan Blum MA) Household Members: None Both parents involved: No Caregiver staying overnight: No Housing: Apartment Are you a primary hospice care transitions coordinator to a significant other at home: No Do you presently have visiting nurse or other home services: No 75 years or older and lives alone: No Alcohol intake: current Alcohol intake frequency: a few times a month Patient Tobacco Use Status: Never used Tobacco e-Cigarette/Vaping Use: Never Used Second Hand Smoke Exposure: No Current occupational status: employed 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 Cognitive needs: No Hearing needs: No Vision needs: Yes (wear glasses) Telehealth Telehealth Telehealth Platform: Telephone Location of provider rendering services: practice address Location of patient: address on file Patient Identification confirmed using: Name, : Yes Telehealth method: voice only Patient verbally consented to treatment: Yes Patient verbally consented to billing insurance company: Yes Patient informed of any privacy concerns related to visit: Yes Minutes spent on Phone/Video with Pt.: 60 Assessment & Plan Assessment & Plan (1) Morbid obesity: Code(s): E66.01 - Morbid (severe) obesity due to excess calories Category: Medical Plan: 1.? Plan for lap sleeve gastrectomy. If diaphragmatic or ventral hernias are present at time of surgery, these will be repaired laparoscopically as well. I emphasized the importance of close follow-up, adherence to instructions and good communication. The surgery does not replace the need to change your lifestlyle which is the cause of the obesity problem. The surgery provides the motivation to try again to change your lifestyle, it reduces the appetite and make the transition to a better lifestyle easier and doubles the amount of weight you would lose compared to doing the lifestyle change without the surgery. You will need to be on a liquid diet with protein shakes for 2 weeks before surgery to maximize weight loss and boost your nutritional status to recover better from surgery and also for the first two weeks after surgery to let the stomach heal before we introduce other foods. After the first 2 weeks we will introduce protein bars and soft foods like scrambled eggs, cottage cheese and yogurt and after the 6th week will introduce meat, fish and cooked vegetables in small amounts. Over time you should be able to eat everything in small amounts. Side effects like nausea, vomiting, heartburn or abdominal pain are not common in the practice unless you are not following in the practice. This operation requires lifetime commitment to following in our practice and communication with me. You will much less weight and experience side effects if you don?t communicate or not following in the practice. Complications are rare and in our practice is about 1/10 of the national average. However, you can develop bleeding that may require transfusion (hasn?t happened for year in the practice), you may from complications (we did not have any deaths in the practice) and infections. Infections are usually a result of breakdown in communication or not understanding or following directions correctly. They are difficult to treat, they can happen during the first 6 weeks, they may require to be in the hospital for weeks or even months, not being able to eat by mouth and you may have drains and surgeries to try and correct the issue. 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 1.?Nutritional counseling. Start with one premade PREMIER protein (buy at [employer] or [employer]) shake (8 oz of Premier and NOT the whole bottle) at 8am-10am, one protein bar ([facility] [employer] protein bar, buy at [employer], or [employer]) at 11am-1pm, another premade PREMIER protein shake (mix 4oz of Premier mixed with 4oz low fat unsweetened almond milk each) at 2pm-4pm, dinner at 5pm (12 forks of protein and 12 forks of salad/vegetables) and one more [facility] protein bar at 7pm-9pm? So you do 2 protein shakes, 2 protein bars and one meal per day. Meal to include lean meat (beef, fish, pork, turkey, chicken), or vietnamese yogurt, or egg whites, or beans with a salad with olive oil and fruits (berries, pears, apples, kiwi). Avoid salt, breads, potatoes, rice, pasta, desserts. 3. Each shake would be drunk slowly, like coffee in a period of 2 hours. 4. Cut each bar in 4 pieces and eat each piece in 30min ?to make each bar last 2 hours. 5. I emphasized the importance of measuring accurately the food portion and measure it when serving the food in plate 6. The meal portions include 12 full-size forks of meat and 12 full-size forks of salad. You always eat the meat portion but you can replace up to 6 forks for salad/vegetables with rice, potatoes or pasta, or a fruit ?if you like. The less you do it the better weight loss will be. 7. One full-size fork is what it can be scooped on the fork without falling aside and not what can be bit with the fork. Use regular forks like those you find in a typical restaurant. 8.? Please buy the body composition scale we discussed and send me weight measurements as soon as possible and then once a week. Always include your diet and exercise plan. 9. Start stationary bike at a resistance level of 2.0 Increase level by 1.0 every 3 min to a max level of 2.0. Stay at this level for 3 min and then return to level 2.0 and repeat same steps until 400 calories are burned daily. 10.?It is important of avoiding and for at least 18 months postoperatively and has been discussed at the infosession. 11. Goal is to lose at least 1.5-2lbs per week 12. Goal to lose 10% of your weight before surgery, which is about 30lbs. Ultimate weight goal: 260lbs before surgery 13. Please follow the diet plan exactly without any change. If you don't like something about the plan or you feel hungry you need to communicate with me so I can help you revise the plan. You should not change the plan yourself 14. To be scheduled for EGD to assess the stomach's anatomy. The possibility of biopsies was discussed. Patient needs to avoid use of NSAIDs and aspirin for 1 week prior to EGD. You must be on liquids only the day before your endoscopy. Risks of perforation and bleeding was discussed with the patient. This will be an outpatient procedure with IV sedation. Orders: Orders Insulin Today E11.69 - Type 2 diabetes mellitus with other specified complication, E11.8 - Type 2 diabetes mellitus with unspecified complications, E11.9 - Type 2 diabetes mellitus without complications, E66.01 - Morbid (severe) obesity due to excess calories, E78.5 - Hyperlipidemia, unspecified, G47.33 - Obstructive sleep apnea (adult) (pediatric), I10 - Essential (primary) hypertension, J45.20 - Mild intermittent asthma, uncomplicated, K21.9 - Gastro-esophageal reflux disease without esophagitis Complete Blood Count Auto Diff Today E11.69 - Type 2 diabetes mellitus with other specified complication, E11.8 - Type 2 diabetes mellitus with unspecified complications, E11.9 - Type 2 diabetes mellitus without complications, E66.01 - Morbid (severe) obesity due to excess calories, E78.5 - Hyperlipidemia, unspecified, G47.33 - Obstructive sleep apnea (adult) (pediatric), I10 - Essential (primary) hypertension, J45.20 - Mild intermittent asthma, uncomplicated, K21.9 - Gastro-esophageal reflux disease without esophagitis Lipid Panel Today E11.69 - Type 2 diabetes mellitus with other specified complication, E11.8 - Type 2 diabetes mellitus with unspecified complications, E11.9 - Type 2 diabetes mellitus without complications, E66.01 - Morbid (severe) obesity due to excess calories, E78.5 - Hyperlipidemia, unspecified, G47.33 - Obstructive sleep apnea (adult) (pediatric), I10 - Essential (primary) hypertension, J45.20 - Mild intermittent asthma, uncomplicated, K21.9 - Gastro-esophageal reflux disease without esophagitis Comprehensive Met. Panel Today E11.69 - Type 2 diabetes mellitus with other specified complication, E11.8 - Type 2 diabetes mellitus with unspecified complications, E11.9 - Type 2 diabetes mellitus without complications, E66.01 - Morbid (severe) obesity due to excess calories, E78.5 - Hyperlipidemia, unspecified, G47.33 - Obstructive sleep apnea (adult) (pediatric), I10 - Essential (primary) hypertension, J45.20 - Mild intermittent asthma, uncomplicated, K21.9 - Gastro-esophageal reflux disease without esophagitis TSH reflex Free T4 Today E11.69 - Type 2 diabetes mellitus with other specified complication, E11.8 - Type 2 diabetes mellitus with unspecified complications, E11.9 - Type 2 diabetes mellitus without complications, E66.01 - Morbid (severe) obesity due to excess calories, E78.5 - Hyperlipidemia, unspecified, G47.33 - Obstructive sleep apnea (adult) (pediatric), I10 - Essential (primary) hypertension, J45.20 - Mild intermittent asthma, uncomplicated, K21.9 - Gastro-esophageal reflux disease without esophagitis Ferritin Today E11.69 - Type 2 diabetes mellitus with other specified complication, E11.8 - Type 2 diabetes mellitus with unspecified complications, E11.9 - Type 2 diabetes mellitus without complications, E66.01 - Morbid (severe) obesity due to excess calories, E78.5 - Hyperlipidemia, unspecified, G47.33 - Obstructive sleep apnea (adult) (pediatric), I10 - Essential (primary) hypertension, J45.20 - Mild intermittent asthma, uncomplicated, K21.9 - Gastro-esophageal reflux disease without esophagitis Vitamin D 25-OH Total Today E11.69 - Type 2 diabetes mellitus with other specified complication, E11.8 - Type 2 diabetes mellitus with unspecified complications, E11.9 - Type 2 diabetes mellitus without complications, E66.01 - Morbid (severe) obesity due to excess calories, E78.5 - Hyperlipidemia, unspecified, G47.33 - Obstructive sleep apnea (adult) (pediatric), I10 - Essential (primary) hypertension, J45.20 - Mild intermittent asthma, uncomplicated, K21.9 - Gastro-esophageal reflux disease without esophagitis ECG 12 lead EKG Today E11.69 - Type 2 diabetes mellitus with other specified complication, E11.8 - Type 2 diabetes mellitus with unspecified complications, E11.9 - Type 2 diabetes mellitus without complications, E66.01 - Morbid (severe) obesity due to excess calories, E78.5 - Hyperlipidemia, unspecified, G47.33 - Obstructive sleep apnea (adult) (pediatric), I10 - Essential (primary) hypertension, J45.20 - Mild intermittent asthma, uncomplicated, K21.9 - Gastro-esophageal reflux disease without esophagitis Hemoglobin A1c Today E11.69 - Type 2 diabetes mellitus with other specified complication, E11.8 - Type 2 diabetes mellitus with unspecified complications, E11.9 - Type 2 diabetes mellitus without complications, E66.01 - Morbid (severe) obesity due to excess calories, E78.5 - Hyperlipidemia, unspecified, G47.33 - Obstructive sleep apnea (adult) (pediatric), I10 - Essential (primary) hypertension, J45.20 - Mild intermittent asthma, uncomplicated, K21.9 - Gastro-esophageal reflux disease without esophagitis H Pylori Breath Test Today E11.69 - Type 2 diabetes mellitus with other specified complication, E11.8 - Type 2 diabetes mellitus with unspecified complications, E11.9 - Type 2 diabetes mellitus without complications, E66.01 - Morbid (severe) obesity due to excess calories, E78.5 - Hyperlipidemia, unspecified, G47.33 - Obstructive sleep apnea (adult) (pediatric), I10 - Essential (primary) hypertension, J45.20 - Mild intermittent asthma, uncomplicated, K21.9 - Gastro-esophageal reflux disease without esophagitis IRON PROFILE Today E11.69 - Type 2 diabetes mellitus with other specified complication, E11.8 - Type 2 diabetes mellitus with unspecified complications, E11.9 - Type 2 diabetes mellitus without complications, E66.01 - Morbid (severe) obesity due to excess calories, E78.5 - Hyperlipidemia, unspecified, G47.33 - Obstructive sleep apnea (adult) (pediatric), I10 - Essential (primary) hypertension, J45.20 - Mild intermittent asthma, uncomplicated, K21.9 - Gastro-esophageal reflux disease without esophagitis Vitamin B12 and Folate Today E11.69 - Type 2 diabetes mellitus with other specified complication, E11.8 - Type 2 diabetes mellitus with unspecified complications, E11.9 - Type 2 diabetes mellitus without complications, E66.01 - Morbid (severe) obesity due to excess calories, E78.5 - Hyperlipidemia, unspecified, G47.33 - Obstructive sleep apnea (adult) (pediatric), I10 - Essential (primary) hypertension, J45.20 - Mild intermittent asthma, uncomplicated, K21.9 - Gastro-esophageal reflux disease without esophagitis Zinc Today E11.69 - Type 2 diabetes mellitus with other specified complication, E11.8 - Type 2 diabetes mellitus with unspecified complications, E11.9 - Type 2 diabetes mellitus without complications, E66.01 - Morbid (severe) obesity due to excess calories, E78.5 - Hyperlipidemia, unspecified, G47.33 - Obstructive sleep apnea (adult) (pediatric), I10 - Essential (primary) hypertension, J45.20 - Mild intermittent asthma, uncomplicated, K21.9 - Gastro-esophageal reflux disease without esophagitis C Reactive Protein Today E11.69 - Type 2 diabetes mellitus with other specified complication, E11.8 - Type 2 diabetes mellitus with unspecified complications, E11.9 - Type 2 diabetes mellitus without complications, E66.01 - Morbid (severe) obesity due to excess calories, E78.5 - Hyperlipidemia, unspecified, G47.33 - Obstructive sleep apnea (adult) (pediatric), I10 - Essential (primary) hypertension, J45.20 - Mild intermittent asthma, uncomplicated, K21.9 - Gastro-esophageal reflux disease without esophagitis Vitamin B1 Today E11.69 - Type 2 diabetes mellitus with other specified complication, E11.8 - Type 2 diabetes mellitus with unspecified complications, E11.9 - Type 2 diabetes mellitus without complications, E66.01 - Morbid (severe) obesity due to excess calories, E78.5 - Hyperlipidemia, unspecified, G47.33 - Obstructive sleep apnea (adult) (pediatric), I10 - Essential (primary) hypertension, J45.20 - Mild intermittent asthma, uncomplicated, K21.9 - Gastro-esophageal reflux disease without esophagitis Vitamin A Today E11.69 - Type 2 diabetes mellitus with other specified complication, E11.8 - Type 2 diabetes mellitus with unspecified complications, E11.9 - Type 2 diabetes mellitus without complications, E66.01 - Morbid (severe) obesity due to excess calories, E78.5 - Hyperlipidemia, unspecified, G47.33 - Obstructive sleep apnea (adult) (pediatric), I10 - Essential (primary) hypertension, J45.20 - Mild intermittent asthma, uncomplicated, K21.9 - Gastro-esophageal reflux disease without esophagitis US abdomen comp w elastography Today E11.69 - Type 2 diabetes mellitus with other specified complication, E11.8 - Type 2 diabetes mellitus with unspecified complications, E11.9 - Type 2 diabetes mellitus without complications, E66.01 - Morbid (severe) obesity due to excess calories, E78.5 - Hyperlipidemia, unspecified, G47.33 - Obstructive sleep apnea (adult) (pediatric), I10 - Essential (primary) hypertension, J45.20 - Mild intermittent asthma, uncomplicated, K21.9 - Gastro-esophageal reflux disease without esophagitis XR chest 2V Today E11.69 - Type 2 diabetes mellitus with other specified complication, E11.8 - Type 2 diabetes mellitus with unspecified complications, E11.9 - Type 2 diabetes mellitus without complications, E66.01 - Morbid (severe) obesity due to excess calories, E78.5 - Hyperlipidemia, unspecified, G47.33 - Obstructive sleep apnea (adult) (pediatric), I10 - Essential (primary) hypertension, J45.20 - Mild intermittent asthma, uncomplicated, K21.9 - Gastro-esophageal reflux disease without esophagitis FL upper GI w air Today E11.69 - Type 2 diabetes mellitus with other specified complication, E11.8 - Type 2 diabetes mellitus with unspecified complications, E11.9 - Type 2 diabetes mellitus without complications, E66.01 - Morbid (severe) obesity due to excess calories, E78.5 - Hyperlipidemia, unspecified, G47.33 - Obstructive sleep apnea (adult) (pediatric), I10 - Essential (primary) hypertension, J45.20 - Mild intermittent asthma, uncomplicated, K21.9 - Gastro-esophageal reflux disease without esophagitis Referrals Behavioral Health Referral E11.69 - Type 2 diabetes mellitus with other specified complication, E11.8 - Type 2 diabetes mellitus with unspecified complications, E11.9 - Type 2 diabetes mellitus without complications, E66.01 - Morbid (severe) obesity due to excess calories, E78.5 - Hyperlipidemia, unspecified, G47.33 - Obstructive sleep apnea (adult) (pediatric), I10 - Essential (primary) hypertension, J45.20 - Mild intermittent asthma, uncomplicated, K21.9 - Gastro-esophageal reflux disease without esophagitis Nutrition/Dietitian Referral E11.69 - Type 2 diabetes mellitus with other specified complication, E11.8 - Type 2 diabetes mellitus with unspecified complications, E11.9 - Type 2 diabetes mellitus without complications, E66.01 - Morbid (severe) obesity due to excess calories, E78.5 - Hyperlipidemia, unspecified, G47.33 - Obstructive sleep apnea (adult) (pediatric), I10 - Essential (primary) hypertension, J45.20 - Mild intermittent asthma, uncomplicated, K21.9 - Gastro-esophageal reflux disease without esophagitis
[2025-11-05 08:40] VITALS: BMI 49.2
== END 2025-11-05 09:14 | disposition home or self-care (01) ==
LOC: HO.HBS 08:01
PROVIDERS: PCP Nurse Practitioner Family; Visit Provider Surgery
DX: E66.01 Morbid (severe) obesity due to excess calories (principal); Z68.42 Body mass index [BMI] 45.0-49.9, adult
CPT/HCPCS: 98011